=== PATIENT | male | born 1995 | race Caucasian/White ===

== ENCOUNTER → 2017-01-04 | Day surgery (SDC) | payer OTHER ==
[~2017-01-04] VITALS: Ht 167.6 cm; Wt 74.4 kg
[~2017-01-04] MED LIST: AMLO2.5T PO; BUPIVACAINE/EPIN 0.25% 30 ML VIAL As Ordered ONE; GLYCOPYRROLATE INJ 0.2 MG/ML 2 ML VIAL As Ordered ONE; KETOROLAC 30 MG/ML VIAL (J1885) IV SCH; KETOROLAC 60 MG/2 ML VIAL (J1885) As Ordered ONE; LIDOCAINE 2% INJ 100 MG/5 ML SDV (FOR ANES.) As Ordered ONE; LR 1,000 ML IV ONE; LR 1,000 ML IV SCH; METOCLOPRAMIDE INJ 10MG/2ML VIAL (J2765) IV PRN; MIDAZOLAM INJ 2 MG/2 ML VIAL (J2250) As Ordered ONE; MORPHINE 2 MG/ML 1ML SYRINGE IV PRN; NEOSTIGMINE 1MG/ML 5 ML SYRINGE (J2710) As Ordered ONE; NORCO, ANEXSIA 5/325MG TABLET (HYDROcodone/ACETAMINOPHEN) PO PRN; ONDANSETRON 4MG/2ML VIAL (J2405) As Ordered ONE; ONDANSETRON 4MG/2ML VIAL (J2405) IV PRN; PROPOFOL 200 MG/20 ML VIAL As Ordered ONE; ROCURONIUM BROMIDE 50 MG/5 ML VIAL As Ordered ONE; ceFAZolin 1GM INJ (J0690) As Ordered ONE; ceFAZolin SOD 1 GM in D5W MINI-BAG PLUS 50 ML IV ONE; dexameTHASONE 4 MG/ML 1ML VIAL (J1100) As Ordered ONE; fentaNYL 100 MCG/2 ML INJECTION (J3010) As Ordered ONE; fentaNYL 100 MCG/2 ML INJECTION (J3010) IV PRN; fentaNYL 250 MCG/5 ML INJECTION (J3010) As Ordered ONE
--- NOTE | 2017-01-04 10:41 | RO ---
DATE OF PROCEDURE: 01/04/2017 PREOPERATIVE DIAGNOSIS: Left inguinal hernia. POSTOPERATIVE DIAGNOSIS: Left inguinal hernia (indirect). PROCEDURE: Laparoscopic left inguinal hernia repair with 3-D Max mesh (TEPP). SURGEON: Dr. Simone San. AMUSEMENT RIDE OPERATOR: ANESTHESIA: General endotracheal anesthesia. ESTIMATED BLOOD LOSS: Minimal. FLUIDS: Crystalloid. DESCRIPTION OF OPERATION: The patient was brought to the operating room and was given general anesthesia. After adequate anesthesia and preoperative antibiotics were given, the patient was prepped and draped in usual sterile fashion. Next a periumbilical incision was made with skin knife. Blunt dissection was carried down to fascia. Fascia was incised longitudinally along the anterior rectus muscle fascia. Rectus muscle was retracted anteriorly. Finger dissection as well as balloon dissection posterior to the rectus muscle was performed and then the balloon was insufflated under direct visualization. Peritoneum came down nicely and the rectus muscles anteriorly as well as the epigastrics. Next the stationary balloon was placed in the preperitoneal space and insufflated to 15 mm pressure and two 5 mm trocars were placed in the infraumbilical site under direct visualization. Next the left inguinal area was dissected out in the following manner. First loose areolar tissue was dissected off the posterior aspect of pubis Jose Angel's ligament and then dissection from lateral to the epigastric/internal ring was performed with blunt dissection and then the peritoneum was visualized followed up into the internal ring and was able to be dissected off the surrounding structures. Eventually once this was dissected off the cord structures, the vessels as well as the vas to where the vas dove deep into the pelvis. The 3-D Max mesh medium was placed in the preperitoneal space tacked in at Jose Angel's pubis, anteriorly along the rectus and laterally along the tail. The preperitoneal space was desufflated under direct visualization. #0 Vicryl was used to close the fascia at the umbilicus and #4-0 Vicryl was used to close all incisions. Steri-Strips and dry sterile dressing was applied. The patient was awakened, extubated, brought to recovery room awake, alert and hemodynamically stable. Sponge and needle counts correct times two.
[2017-01-04] MEDS: PERCOCET 5MG/325MG TAB PO PRN ×2 (11:04→11:38)
[2017-01-04 13:20] VITALS: BP 132/82
== END | disposition home or self-care (01) ==
LOC: M SDC 07:01
PROVIDERS: ATTEND Surgery
DX: K40.90 Unilateral inguinal hernia, without obstruction or gangrene, not specified as recurrent (principal); I10 Essential (primary) hypertension; Z72.0 Tobacco use; Z79.899 Other long term (current) drug therapy
CPT/HCPCS: 49650; C1781; J0690; J1100; J1885; J2250; J2405; J2710; J3010

== ENCOUNTER 2017-02-10 02:38 | Emergency (ER) | payer OTHER ==
[~2017-02-10] VITALS: Ht 167.6 cm; Wt 79.0 kg
[~2017-02-10 02:38] MED LIST changes: -BUPIVACAINE/EPIN 0.25% 30 ML VIAL As Ordered ONE; -GLYCOPYRROLATE INJ 0.2 MG/ML 2 ML VIAL As Ordered ONE; -KETOROLAC 30 MG/ML VIAL (J1885) IV SCH; -KETOROLAC 60 MG/2 ML VIAL (J1885) As Ordered ONE; -LIDOCAINE 2% INJ 100 MG/5 ML SDV (FOR ANES.) As Ordered ONE; -LR 1,000 ML IV ONE; -LR 1,000 ML IV SCH; -METOCLOPRAMIDE INJ 10MG/2ML VIAL (J2765) IV PRN; -MIDAZOLAM INJ 2 MG/2 ML VIAL (J2250) As Ordered ONE; -MORPHINE 2 MG/ML 1ML SYRINGE IV PRN; -NEOSTIGMINE 1MG/ML 5 ML SYRINGE (J2710) As Ordered ONE; -NORCO, ANEXSIA 5/325MG TABLET (HYDROcodone/ACETAMINOPHEN) PO PRN; -ONDANSETRON 4MG/2ML VIAL (J2405) As Ordered ONE; -ONDANSETRON 4MG/2ML VIAL (J2405) IV PRN; -PROPOFOL 200 MG/20 ML VIAL As Ordered ONE; -ROCURONIUM BROMIDE 50 MG/5 ML VIAL As Ordered ONE; -ceFAZolin 1GM INJ (J0690) As Ordered ONE; -ceFAZolin SOD 1 GM in D5W MINI-BAG PLUS 50 ML IV ONE; -dexameTHASONE 4 MG/ML 1ML VIAL (J1100) As Ordered ONE; -fentaNYL 100 MCG/2 ML INJECTION (J3010) As Ordered ONE; -fentaNYL 100 MCG/2 ML INJECTION (J3010) IV PRN; -fentaNYL 250 MCG/5 ML INJECTION (J3010) As Ordered ONE
[2017-02-10] MEDS ORDERED: IBUP-1022 PO (02:54)
[2017-02-10 04:55] VITALS: BP 151/92
== END 2017-02-10 04:58 | disposition home or self-care (01) ==
LOC: M ED 02:38
DX: F10.129 Alcohol abuse with intoxication, unspecified (principal); F43.9 Reaction to severe stress, unspecified

== ENCOUNTER 2017-05-18 11:23 | Emergency (ER) | payer OTHER ==
[~2017-05-18] VITALS: Ht 167.6 cm; Wt 78.2 kg
[~2017-05-18 11:23] MED LIST changes: +IBUP-1022 PO
[2017-05-18] MEDS ORDERED: OXYC15TA76 PO (11:43)
[2017-05-18] MEDS ORDERED: LEXA1TAB PO (11:46)
[2017-05-18] MEDS ORDERED: LORA1TAB12 PO (11:46)
[2017-05-18] MEDS ORDERED: TYLE325T5 PO (15:01)
[2017-05-18 15:17] VITALS: BP 150/82
== END 2017-05-18 15:18 | disposition home or self-care (01) ==
LOC: M ED 11:23
DX: G89.18 Other acute postprocedural pain (principal); I10 Essential (primary) hypertension; Z79.899 Other long term (current) drug therapy

== ENCOUNTER 2017-05-25 23:17 | Emergency (ER) | payer OTHER ==
[~2017-05-25] VITALS: Ht 165.1 cm; Wt 78.6 kg
[~2017-05-25 23:17] MED LIST changes: +LEXA1TAB PO; +LORA1TAB12 PO; +OXYC15TA76 PO; +TYLE325T5 PO
[2017-05-26 01:00] VITALS: BP 151/102
[2017-05-26] MEDS ORDERED: NORCO, ANEXSIA 5/325MG TABLET (HYDROcodone/ACETAMINOPHEN) PO ONE (01:00)
== END 2017-05-26 01:10 | disposition home or self-care (01) ==
LOC: M ED 23:17
DX: G89.18 Other acute postprocedural pain (principal); Z72.0 Tobacco use

== ENCOUNTER → 2018-05-15 | Outpatient (CLI) | payer OTHER ==
[~2018-05-15] MED LIST changes: -AMLO2.5T PO; -IBUP-1022 PO; -LEXA1TAB PO; -LORA1TAB12 PO; +METHACHOLINE KIT (J7674) INH; -OXYC15TA76 PO; -TYLE325T5 PO
== END ==
LOC: M CARPUL 06:42
DX: R06.00 Dyspnea, unspecified (principal)
CPT/HCPCS: J7674

== ENCOUNTER 2018-07-20 18:15 | Emergency (ER) | payer OTHER ==
[~2018-07-20] VITALS: Ht 167.6 cm; Wt 79.1 kg
[~2018-07-20 18:15] MED LIST changes: +AMLO2.5T2 PO; +IBUP-1022 PO; +LEXA1TAB PO; +LORA1TAB12 PO; -METHACHOLINE KIT (J7674) INH; +OXYC15TA76 PO; +TYLE325T5 PO
[2018-07-20] MEDS ORDERED: PROAAER10 (18:23)
[2018-07-20] MEDS ORDERED: AMLO2.5T2 (18:23)
[2018-07-20] MEDS ORDERED: ADVA230A (18:23)
[2018-07-20 18:31] VITALS: BP 160/108
[2018-07-20] MEDS ORDERED: AUGMENTIN 875 MG TAB PO ONE (19:00)
[2018-07-20] MEDS ORDERED: TETRACAINE 0.5% OPHTH SOLN 4ML OS ONE (19:00)
[2018-07-20] MEDS ORDERED: OFLOXACIN 0.3 % (OCUFLOX) OPTH SOL 5ML OS ONE (19:00)
[2018-07-20] MEDS ORDERED: FLUORESCEIN OPHTH 1 MG STRIP OS ONE (19:00)
[2018-07-20] MEDS ORDERED: AUGM875T28 PO (19:05)
[2018-07-20] MEDS ORDERED: OCUF0.25 OS (19:05)
[2018-07-20] MEDS ORDERED: ADACEL/BOOSTRIX VACCINE (DIPHTH/PERTUSS/ACELL/TETANUS)0.5ML SYR (90715) IM ONE (19:15)
== END 2018-07-20 19:32 | disposition home or self-care (01) ==
LOC: M ED 19:20
DX: S01.112A Laceration without foreign body of left eyelid and periocular area, initial encounter (principal); W55.03XA Scratched by cat, initial encounter; Y92.89 Other specified places as the place of occurrence of the external cause; I10 Essential (primary) hypertension; J45.909 Unspecified asthma, uncomplicated; F17.220 Nicotine dependence, chewing tobacco, uncomplicated

== ENCOUNTER → 2018-08-28 | Outpatient (REF) | payer OTHER ==
[~2018-08-28] MED LIST changes: +ADVA230A; -AMLO2.5T2 PO; +AMLO2.5T3; +AMLO2.5T3 PO; +AUGM875T28 PO; +OCUF0.25 OS; +PROAAER10
[2018-09-01 14:12] LABS: D001-IgE D pteronyssinus <0.10 kU/L (Class 0); E005-IgE Dog Dander 0.12 kU/L (Class 0/I); G002-IgE Bermuda Grass < 0.10 kU/L (Class 0); G008-IgE Kentucky Bluegrass < 0.10 kU/L (Class 0); M001-IgE Penicillium chrysogen < 0.10 kU/L (Class 0); M002 IgE Cladosporium herbaru < 0.10 kU/L (Class 0); M003 IgE Aspergillus fumigatu < 0.10 kU/L (Class 0); M006-IgE Alternaria alternata < 0.10 kU/L (Class 0); T001-IgE Maple/Box Elder < 0.10 kU/L (Class 0); T003-IgE Common Silver Birch < 0.10 kU/L (Class 0); T006-IgE Cedar, Mountain < 0.10 kU/L (Class 0); T007-IgE Oak, White < 0.10 kU/L (Class 0); T008-IgE Elm, American < 0.10 kU/L (Class 0); T015-IgE Ash, White < 0.10 kU/L (Class 0); T041-IgE Hickory, White < 0.10 kU/L (Class 0); T070-IgE White Mulberry < 0.10 kU/L (Class 0); W001-IgE Ragweed, Short < 0.10 kU/L (Class 0); W009-IgE Plantain, English < 0.10 kU/L (Class 0); W014-IgE Pigweed, Rough < 0.10 kU/L (Class 0); W018-IgE Sheep Sorrel < 0.10 kU/L (Class 0)
== END ==
LOC: M LAB REF 16:11
PROVIDERS: ATTEND Internal Medicine Pulmonary Disease
DX: J45.30 Mild persistent asthma, uncomplicated (principal)

== ENCOUNTER → 2018-08-29 | Outpatient (REF) | payer OTHER ==
[2018-08-29 13:24] LABS: BASO % 0.6 % (0.0-1.0); EOS # 0.2 10^3/uL (0.0-0.50); EOS % 3.1 % (0.0-3.0); HEMATOCRIT 46.4 % (42.0-52.0); HEMOGLOBIN 16.2 g/dl (13.5-17.5); LYMPH # 2.4 10^3/uL (1.5-6.5); LYMPH % 35.8 % (24.0-44.0); MEAN CORPUSCULAR HEMOGLOBIN 30.7 pg (27.0-33.0); MEAN CORPUSCULAR HGB CONC 34.9 g/dl (32.0-36.5); MEAN CORPUSCULAR VOLUME 87.9 fl (80.0-96.0); MONO # 0.6 10^3/uL (0.0-0.8); MONO % 8.8 % (0.0-5.0); NEUTROPHILS # 3.5 10^3/uL (1.8-7.7); NEUTROPHILS % 51.6 % (36.0-66.0); PLATELET COUNT, AUTOMATED 220 10^3/uL (150-450); RED BLOOD COUNT 5.28 10^6/uL (4.30-6.10); WHITE BLOOD COUNT 6.7 10^3/uL (4.0-10.0)
== END ==
LOC: M LAB REF 13:04
PROVIDERS: ATTEND Internal Medicine Pulmonary Disease
DX: J45.30 Mild persistent asthma, uncomplicated (principal)

== ENCOUNTER 2018-10-20 11:27 | Emergency (ER) | payer OTHER ==
[~2018-10-20] VITALS: Ht 167.6 cm; Wt 81.8 kg
[2018-10-20 12:03] VITALS: BP 146/82
[2018-10-20] MEDS ORDERED: ASPIRIN 81 MG CHEW TABLET PO ONE (12:30)
[2018-10-20 12:37] LABS: BASO % 0.4 % (0.0-1.0); EOS # 0.2 10^3/uL (0.0-0.50); EOS % 2.2 % (0.0-3.0); HEMOGLOBIN 15.8 g/dl (13.5-17.5); LYMPH # 2.7 10^3/uL (1.5-6.5); LYMPH % 37.3 % (24.0-44.0); MEAN CORPUSCULAR HEMOGLOBIN 30.4 pg (27.0-33.0); MEAN CORPUSCULAR HGB CONC 34.3 g/dl (32.0-36.5); MEAN CORPUSCULAR VOLUME 88.6 fl (80.0-96.0); MONO # 0.5 10^3/uL (0.0-0.8); MONO % 6.3 % (0.0-5.0); NEUTROPHILS # 3.8 10^3/uL (1.8-7.7); NEUTROPHILS % 53.5 % (36.0-66.0); PLATELET COUNT, AUTOMATED 233 10^3/uL (150-450); RED BLOOD COUNT 5.19 10^6/uL (4.30-6.10); WHITE BLOOD COUNT 7.2 10^3/uL (4.0-10.0)
[2018-10-20 12:48] LABS: BLOOD UREA NITROGEN 8 MG/DL (7-18); CALCIUM LEVEL 9.1 MG/DL (8.5-10.1); CARBON DIOXIDE LEVEL 25 MEQ/L (21-32); CHLORIDE LEVEL 108 MEQ/L (98-107); CPK CREATINE PHOSPHOKINASE 200 U/L (39-308); CREATININE FOR GFR 1.02 MG/DL (0.70-1.30); GLOMERULAR FILTRATION RATE > 60.0 (>60); GLUCOSE, FASTING 92 MG/DL (70-100); POTASSIUM SERUM 3.9 MEQ/L (3.5-5.1); SODIUM LEVEL 140 MEQ/L (136-145); TROPONIN I < 0.02 NG/ML (< 0.10)
[2018-10-20 13:06] LABS: INR 1.03; PROTHROMBIN TIME 13.6 SECONDS (12.1-14.4)
[2018-10-20] MEDS ORDERED: NAPR-837 PO (13:46)
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
--- NOTE | 2018-10-21 07:56 | REP ---
Chest x-ray: Two views. History: Chest pain . Comparison study: No comparison study . Findings: The lungs are well inflated and free of infiltrate. The pleural angles are sharp. The heart size is normal. Pulmonary vasculature is not increased. No significant bony abnormality is seen. EKG monitoring electrodes are seen. Impression: Negative chest x-ray. Electronically Signed by Cam Castillo MD 10/20/2018 01:46 P
== END 2018-10-20 14:07 | disposition home or self-care (01) ==
LOC: M ED 11:27 → EDBD 11:27 → M ED 14:07
DX: R09.1 Pleurisy (principal); I10 Essential (primary) hypertension; K21.9 Gastro-esophageal reflux disease without esophagitis; J45.909 Unspecified asthma, uncomplicated; F17.200 Nicotine dependence, unspecified, uncomplicated; Z79.899 Other long term (current) drug therapy; Z79.51 Long term (current) use of inhaled steroids

== ENCOUNTER 2019-03-21 05:34 | Emergency (ER) | payer OTHER ==
[~2019-03-21] VITALS: Ht 167.6 cm; Wt 78.6 kg
[~2019-03-21 05:34] MED LIST changes: +NAPR-837 PO
[2019-03-21] MEDS ORDERED: IBUPROFEN 800 MG TAB PO ONE (06:30)
[2019-03-21] MEDS ORDERED: AUGMENTIN 875 MG TAB PO ONE (06:45)
[2019-03-21] MEDS ORDERED: PIPERACILLIN/TAZOBACTAM SOD 3.375 GM in D5W MINI-BAG PLUS 50 ML IV ONE (06:45)
[2019-03-21] MEDS ORDERED: ONDANSETRON 4MG/2ML VIAL (J2405) IV ONE (07:00)
[2019-03-21] MEDS ORDERED: MORPHINE 2 MG/ML 1ML SYRINGE (J2270) IV ONE (07:00)
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
[2019-03-21 07:19] LABS: HEMATOCRIT 49.9 % (42.0-52.0); HEMOGLOBIN 17.1 g/dl (13.5-17.5); MEAN CORPUSCULAR HGB CONC 34.3 g/dl (32.0-36.5); MEAN CORPUSCULAR VOLUME 90.4 fl (80.0-96.0); PLATELET COUNT, AUTOMATED 241 10^3/uL (150-450); RED BLOOD COUNT 5.52 10^6/uL (4.30-6.10); WHITE BLOOD COUNT 9.7 10^3/uL (4.0-10.0)
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
[2019-03-21 09:24] VITALS: BP 144/83
[2019-03-21 09:58] LABS: AMPHETAMINES LEVEL URINE NEGATIVE (NEGATIVE); BARBITURATES URINE NEGATIVE (NEGATIVE); BENZODIAZEPINES URINE NEGATIVE (NEGATIVE); CANNABINOIDS URINE NEGATIVE (NEGATIVE); COCAINE METABOLITE URINE NEGATIVE (NEGATIVE); METHADONE URINE NEGATIVE (NEGATIVE); OPIATES URINE POSITIVE (NEGATIVE); PHENCYCLIDINE URINE NEGATIVE (NEGATIVE)
[2019-03-21 10:04] LABS: APPEARANCE, URINE CLEAR (CLEAR); BACTERIA, URINE AUTO NEGATIVE (NEGATIVE); BILIRUBIN, URINE AUTO NEGATIVE (NEGATIVE); BLOOD, URINE BLOOD NEGATIVE (NEGATIVE); COLOR, URINE YELLOW (YELLOW); GLUCOSE, URINE (UA) AUTO NEGATIVE (NEGATIVE); KETONE, URINE AUTO TRACE mg/dL (NEGATIVE); LEUKOCYTE ESTERASE, URINE AUTO NEGATIVE (NEGATIVE); NITRITE, URINE AUTO NEGATIVE (NEGATIVE); PROTEIN, URINE AUTO NEGATIVE (NEGATIVE); RBC, URINE AUTO 0 /HPF (0-3); SPECIFIC GRAVITY URINE AUTO 1.017 (1.002-1.035); SQUAMOUS EPITHELIAL CELL UR AU 0 /HPF (0-6); UROBILINOGEN, URINE AUTO 0.2 mg/dL (0.0-2.0); WBC, URINE AUTO 1 /HPF (0-3)
[2019-03-22] MEDS ORDERED: AMOX875T2 PO (12:46)
[2019-03-22] MEDS ORDERED: PRED10TA2 PO (16:35)
[2019-03-22] MEDS ORDERED: NORC1TAB7 PO (16:41)
== END 2019-03-21 09:30 | disposition short-term general hospital (02) ==
LOC: M ED 05:34
DX: S02.40FA Zygomatic fracture, left side, initial encounter for closed fracture (principal); S02.40DA Maxillary fracture, left side, initial encounter for closed fracture; S02.32XA Fracture of orbital floor, left side, initial encounter for closed fracture; S02.19XA Other fracture of base of skull, initial encounter for closed fracture; S02.2XXA Fracture of nasal bones, initial encounter for closed fracture; S01.511A Laceration without foreign body of lip, initial encounter; R22.0 Localized swelling, mass and lump, head; F10.10 Alcohol abuse, uncomplicated; Y04.8XXA Assault by other bodily force, initial encounter; Y92.89 Other specified places as the place of occurrence of the external cause; I10 Essential (primary) hypertension; J45.909 Unspecified asthma, uncomplicated; K21.9 Gastro-esophageal reflux disease without esophagitis; F17.220 Nicotine dependence, chewing tobacco, uncomplicated; Z79.899 Other long term (current) drug therapy; Z79.51 Long term (current) use of inhaled steroids
CPT/HCPCS: 70450; 70486; 80047; 80307; 81001; 85027; 96365; 96375; 99284; G0480; J2270; J2405; J2543

== ENCOUNTER 2019-03-22 12:29 | Emergency (ER) | payer OTHER ==
[~2019-03-22] VITALS: Ht 167.6 cm; Wt 78.2 kg
[2019-03-22] MEDS ORDERED: AMOX875T2 PO (12:46)
[2019-03-22] MEDS ORDERED: LIDOCAINE 2% MDV 20 ML VIAL SC ONE (13:30)
[2019-03-22] MEDS ORDERED: NORCO, ANEXSIA 5/325MG TABLET (HYDROcodone/ACETAMINOPHEN) PO ONE (15:15)
[2019-03-22] MEDS ORDERED: PRED10TA2 PO (16:35)
[2019-03-22] MEDS ORDERED: NORC1TAB7 PO (16:41)
[2019-03-22 16:49] VITALS: BP 144/93
== END 2019-03-22 16:50 | disposition home or self-care (01) ==
LOC: M ED 12:29
DX: H53.2 Diplopia (principal); S01.511A Laceration without foreign body of lip, initial encounter; S02.401A Maxillary fracture, unspecified side, initial encounter for closed fracture; S02.82XA Fracture of other specified skull and facial bones, left side, initial encounter for closed fracture; S02.402A Zygomatic fracture, unspecified side, initial encounter for closed fracture; Y04.0XXA Assault by unarmed brawl or fight, initial encounter; Y92.89 Other specified places as the place of occurrence of the external cause; I10 Essential (primary) hypertension; F17.210 Nicotine dependence, cigarettes, uncomplicated

== ENCOUNTER 2019-04-26 12:28 | Emergency (ER) | payer OTHER ==
[~2019-04-26] VITALS: Ht 167.6 cm; Wt 82.8 kg
[~2019-04-26 12:28] MED LIST changes: +AMOX875T2 PO; +NORC1TAB7 PO; +PRED10TA2 PO
[2019-04-26] MEDS ORDERED: BRIN10TA4 (12:40)
[2019-04-26] MEDS ORDERED: IBUPROFEN 600 MG TAB PO ONE (15:15)
[2019-04-26 15:39] VITALS: BP 153/83
== END 2019-04-26 15:41 | disposition home or self-care (01) ==
LOC: M ED 12:28
DX: H00.024 Hordeolum internum left upper eyelid (principal); Z87.81 Personal history of (healed) traumatic fracture; I10 Essential (primary) hypertension; F41.9 Anxiety disorder, unspecified; J45.909 Unspecified asthma, uncomplicated; K21.9 Gastro-esophageal reflux disease without esophagitis; F17.200 Nicotine dependence, unspecified, uncomplicated; F17.220 Nicotine dependence, chewing tobacco, uncomplicated; Z79.899 Other long term (current) drug therapy

== ENCOUNTER → 2019-05-11 | Outpatient (CLI) | payer OTHER ==
[~2019-05-11] MED LIST changes: +BRIN10TA4
--- NOTE | 2019-05-14 08:21 | PFTRPT ---
Height: 65.00 Inches Weight: 187.00 Lbs BSA: 1.92 Diagnosis: Asthma DATE OF STUDY: 05/11/2019 ORDERED BY: Brenda Rojas Spirometry: Pre and post bronchodilator study of excellent technical quality. Forced vital capacity normal. FEV1 in proportion. Obstructive index is, therefore, normal. Flow Volume Loop: Expiratory limb of the flow volume loop is normal. Despite normal baseline parameters, there is a 15% improvement post bronchodilator. Lung Volumes: Total lung capacity normal. Residual volume is in proportion. Diffusing Capacity: Diffusing capacity, although mildly reduced, is appropriate for alveolar volume. Hemoglobin: Hemoglobin acceptable at 13.8. Airway Mechanics: Airway resistance and conductance are normal. IMPRESSION: Positive bronchodilator response may be on the basis of performance of the required maneuver, but clinical correlation with the above will be necessary. MTDD
== END ==
LOC: M CARPUL 13:43
DX: J45.909 Unspecified asthma, uncomplicated (principal)